=== PATIENT | female | born 1990 | race Caucasian/White ===

== ENCOUNTER 2020-10-14 15:55 | Day surgery (SDC) | payer OTHER ==
--- NOTE | 2020-10-14 16:18 | ED Physician Documentation ---
PD HPI ABD PAIN - Stated complaint Stated Complaint: ABD PX/7 WKS - Chief complaint Chief Complaint: Abd Pain - History obtained from History obtained from: Patient - Additional information Additional information: with history of 2 C-sections at 7 weeks gestation. She had a slip and fall hitting her left side a few days ago. Subsequently developed left pelvic and central cramping without bleeding or discharge. Blood type B positive per her. 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 - Present Medications Home Medications: Ambulatory Orders Medication Instructions Recorded Confirmed Levetiracetam [Keppra] 2,750 mg PO BID 10/14/20 10/14/20 Venlafaxine [Effexor] 37.5 mg PO DAILY 10/14/20 10/14/20 - Allergies Allergies/Adverse Reactions: Allergies Allergy/AdvReac Type Severity Reaction Status Date / Time lamotrigine [From Lamictal] Allergy Anaphylaxis Verified 10/14/20 16:07 - Social History Does the pt smoke?: No Smoking Status: Never smoker Does the pt drink ETOH?: No Does the pt have substance abuse?: No PD ED PE NORMAL - Vitals Vital signs reviewed: Yes - General General: Alert and oriented X 3, No acute distress - HEENT HEENT: PERRL, EOMI - Neck Neck: Supple, no meningeal sign, No bony TTP - Cardiac Cardiac: RRR, No murmur - Respiratory Respiratory: No respiratory distress, Clear bilaterally - Abdomen Abdomen: Normal bowel sounds, Soft, Non tender, Other (I am unable to visualize intrauterine on bedside ultrasound) - Back Back: No CVA TTP, No spinal TTP - Derm Derm: Normal color, Warm and dry - Extremities Extremities: No edema, No calf tenderness / cord - Neuro Neuro: Alert and oriented X 3, Normal speech - Psych Psych: Normal mood, Normal affect Results - Vitals Vitals: Vital Signs - 24 hr 10/14/20 10/14/20 10/14/20 16:01 18:43 20:00 Temperature 37.1 C 36.6 C 36.7 C Heart Rate 102 H 89 86 Respiratory 16 16 16 Rate Blood Pressure 120/79 128/88 H 122/74 O2 Saturation 100 100 100 Oxygen O2 Source Room air - Labs Labs: Laboratory Tests 10/14/20 10/14/20 10/14/20 16:25 16:25 16:25 WBC 8.1 RBC 3.91 L Hgb 11.9 L Hct 35.5 L MCV 90.8 MCH 30.4 MCHC 33.5 RDW 12.3 Plt Count 246 MPV 8.7 Neut # (Auto) 5.6 Lymph # (Auto) 1.8 Dent # (Auto) 0.5 Eos # (Auto) 0.2 Baso # (Auto) 0.0 Absolute Nucleated RBC 0.00 Nucleated RBC % 0.0 Sodium 135 Potassium 3.7 Chloride 101 Carbon Dioxide 24 Anion Gap 10.0 BUN 11 Creatinine 0.7 Estimated GFR (MDRD) 98 Glucose 89 Calcium 8.5 HCG, Quant Nasal Adenovirus (PCR) Nasal B. parapertussis DNA (PCR) Nasal Coronavir 229E PCR Nasal Coronavir HKU1 PCR Nasal Coronavir NL63 PCR Nasal Coronavir OC43 PCR Nasal Enterovir/Rhinovir PCR Nasal Influenza B PCR Nasal Influenza A PCR Nasal Parainfluen 1 PCR Nasal Parainfluen 2 PCR Nasal Parainfluen 3 PCR Nasal Parainfluen 4 PCR Nasal RSV (PCR) Nasal B.pertussis DNA PCR Nasal C.pneumoniae (PCR) Germain Human Metapneumo PCR Nasal M.pneumoniae (PCR) Nasal SARS-CoV-2 (PCR) Blood Type B POSITIVE Antibody Screen NEGATIVE 10/14/20 10/14/20 16:25 18:52 WBC RBC Hgb Hct MCV MCH MCHC RDW Plt Count MPV Neut # (Auto) Lymph # (Auto) [place] # (Auto) Eos # (Auto) Baso # (Auto) Absolute Nucleated RBC Nucleated RBC % Sodium Potassium Chloride Carbon Dioxide Anion Gap BUN Creatinine Estimated GFR (MDRD) Glucose Calcium HCG, Quant 2224.00 Nasal Adenovirus (PCR) NOT DETECTED Nasal B. parapertussis DNA (PCR) NOT DETECTED Nasal Coronavir 229E PCR NOT DETECTED Nasal Coronavir HKU1 PCR NOT DETECTED Nasal Coronavir NL63 PCR NOT DETECTED Nasal Coronavir OC43 PCR NOT DETECTED Nasal Enterovir/Rhinovir PCR NOT DETECTED Nasal Influenza B PCR NOT DETECTED Nasal Influenza A PCR NOT DETECTED Nasal Parainfluen 1 PCR NOT DETECTED Nasal Parainfluen 2 PCR NOT DETECTED Nasal Parainfluen 3 PCR NOT DETECTED Nasal Parainfluen 4 PCR NOT DETECTED Nasal RSV (PCR) NOT DETECTED Nasal B.pertussis DNA PCR NOT DETECTED Nasal C.pneumoniae (PCR) NOT DETECTED Germain Human Metapneumo PCR NOT DETECTED Nasal M.pneumoniae (PCR) NOT DETECTED Nasal SARS-CoV-2 (PCR) NOT DETECTED Blood Type Antibody Screen PD MEDICAL DECISION MAKING - ED course ED course: 30-year-old woman with presents with left pelvic pain and cramping in . Work-up demonstrates findings consistent with a ruptured ectopic with hemoperitoneum and a left adnexal mass measuring up to 2.3 cm. Findings were discussed with the on-call plc technician, Dr. Diaz at 7 PM and he will be in to see the patient and likely take her to the OR. Departure - Departure Disposition: ED Transfer to [facility] Clinical Impression: Ectopic without intrauterine Qualifiers: Location of ectopic : ovarian Laterality: left Qualified Code(s): O00.202 - Left ovarian without intrauterine Condition: Stable Discharge Date/Time: 10/14/20 20:36
[2020-10-14 16:31] LABS: BASOPHILS % (AUTO) 0.2 %; EOSINOPHILS # (AUTO) 0.2 10^3/uL (0.0-0.7); EOSINOPHILS % (AUTO) 2.2 %; HCT - HEMATOCRIT 35.5 % (37.0-47.0); HGB - HEMOGLOBIN 11.9 g/dL (12.0-16.0); LYMPHOCYTES # (AUTO) 1.8 10^3/uL (1.5-3.5); LYMPHOCYTES % (AUTO) 21.7 %; MEAN CORPUSCULAR HEMOGLOBIN 30.4 pg (27.0-31.0); MEAN CORPUSCULAR HGB CONC 33.5 g/dL (32.0-36.0); MEAN CORPUSCULAR VOLUME 90.8 fL (81.0-99.0); MEAN PLATELET VOLUME 8.7 fL (7.9-10.8); MONOCYTES # (AUTO) 0.5 10^3/uL (0.0-1.0); MONOCYTES % (AUTO) 6.2 %; NEUTROPHILS # (AUTO) 5.6 10^3/uL (1.5-6.6); NEUTROPHILS % (AUTO) 69.3 %; PLT - PLATELET COUNT 246 10^3/uL (130-450); RED BLOOD COUNT 3.91 10^6/uL (4.20-5.40); RED CELL DISTRIBUTION WIDTH 12.3 % (12.0-15.0); WHITE BLOOD COUNT 8.1 x10^3/uL (4.8-10.8)
[2020-10-14 16:40] LABS: CALCIUM 8.5 mg/dL (8.5-10.3); CREATININE 0.7 mg/dL (0.4-1.0); POTASSIUM 3.7 mmol/L (3.5-5.0)
--- NOTE | 2020-10-14 18:53 | Ultrasound Report ---
PROCEDURE: OB First Trimester INDICATIONS: pelvic pain, 7w OUTSIDE/PRIOR DATING DATA: Last menstrual period (LMP): 08/29/2020. LMP-based estimated date of delivery (ANNETTA): 06/05/2021. First dating scan (date and location): Not applicable. Estimated date of delivery (ANNETTA) from first dating scan: Not applicable. TECHNIQUE: Real-time scanning was performed of the fetus and maternal pelvic organs, with image documentation. COMPARISON: None available FINDINGS: Embryo: No findings of an intrauterine gestation can be seen. Measurement variability in dating: +/- 4 weeks by LMP, +/- 7 days by mean sac diameter (use before 6 weeks gestation if crown-rump length not able to be measured), +/- 5 days by crown-rump length (6-12 weeks gestation). Maternal organs: The right ovary is unremarkable. The left ovary demonstrates an apparent corpus lute um. Within the left adnexal region, there is a masslike heterogeneous focus that measures 2.3 x 1.9 x 2 c m. A large amount of free fluid can be seen within the adnexal regions on both sides, left worse than right, with echogenic debris. IMPRESSION: Findings highly suspicious for an ectopic , without findings of an intrauterine . T here is apparent hemoperitoneum. There is a masslike heterogeneous focus seen within the left adnexal region that measures up to 2.3 cm. An urgent gynecologic consultation is recommended. Note: Concordant preliminary findings given by the deburring machine operator upon the completion of the examination to Dr. Jackson. Reviewed by: Konrad Nolasco MD on 10/14/2020 5:52 PM BROOKE Approved by: Konrad Nolasco MD on 10/14/2020 5:52 PM BROOKE Station ID: [id number]
--- NOTE | 2020-10-14 19:03 | Ultrasound Report ---
PROCEDURE: OB Transvaginal INDICATIONS: pelvic pain, 7w OUTSIDE/PRIOR DATING DATA: Last menstrual period (LMP): 08/29/2020. LMP-b ased estimated date of delivery (ANNETTA): 06/05/2021. First dating scan (date and location): Not applica ble. Estimated date of delivery (ANNETTA) from first dating scan: Not applicable. TECHNIQUE: Real-time s heber was performed of the fetus and maternal pelvic organs, with image documentation. COMPARISON: None available FINDINGS: Embryo: No findings of an intrauterine gestation can be seen. Measuremen t variability in dating: +/- 4 weeks by LMP, +/- 7 days by mean sac diameter (use before 6 weeks gest ation if crown-rump length not able to be measured), +/- 5 days by crown-rump length (6-12 weeks gest ation). Maternal organs: The right ovary is unremarkable. The left ovary demonstrates an apparent co rpus luteum. Within the left adnexal region, there is a masslike heterogeneous focus that measures 2 .3 x 1.9 x 2 cm. A large amount of free fluid can be seen within the adnexal regions on both sides, l eft worse than right, with echogenic debris. IMPRESSION: Findings highly suspicious for an ectopi c , without findings of an intrauterine . There is apparent hemoperitoneum. There i s a masslike heterogeneous focus seen within the left adnexal region that measures up to 2.3 cm. An urgent gynecologic consultation is recommended. Reviewed by: Konrad Nolasco MD on 10/14/2020 6:01 PM BROOKE Approved by: Konrad Nolasco MD on 10/14/2020 6:01 PM BROOKE Station ID: [id number]
[2020-10-14 19:58] LABS: B. PARAPERTUSSIS- RESP PCR PAN NOT DETECTED; B. PERTUSSIS- RESP PCR PANEL NOT DETECTED; C. PNEUMONIAE- RESP PCR PANEL NOT DETECTED; CORONAVIRUS 229E-RESP PCR NOT DETECTED; CORONAVIRUS HKU1-RESP PCR NOT DETECTED; CORONAVIRUS NL63-RESP PCR NOT DETECTED; CORONAVIRUS OC43-RESP PCR NOT DETECTED; HUMAN METAPNEUMOVIRUS NOT DETECTED; INFLUENZA A- RESP PCR PANEL NOT DETECTED; INFLUENZA B - RESP PCR PANEL NOT DETECTED; M. PNEUMONIAE- RESP PCR PANEL NOT DETECTED; PARAINFLUENZA VIRUS 1 NOT DETECTED; PARAINFLUENZA VIRUS 2 NOT DETECTED; PARAINFLUENZA VIRUS 3 NOT DETECTED; PARAINFLUENZA VIRUS 4 NOT DETECTED; RHINOVIRUS/ENTEROVIRUS NOT DETECTED; RSV- RESP PCR PANEL NOT DETECTED; SARS-CoV-2 -RESP PCR PANEL NOT DETECTED
--- NOTE | 2020-10-14 20:10 | PREOP HISTORY & PHYSICAL ---
DATE OF SERVICE: 10/14/2020 Physician: Rakan Diaz MD IDENTIFICATION: A 30-year-old G4, P2, AB1 female whose LMP was 08/29/2020. This makes her roughly 8 weeks EGA. CHIEF COMPLAINT: Pelvic pain. HISTORY OF PRESENT ILLNESS: The patient states roughly 2 days ago, she developed left-sided pelvic p ain. It has become progressively worse over time in a cos nature. She states the pain is currently a 7/10. She states it is worse with moving, as well as deep breathing. She denies left shoulder rajinder n. She states her bowels are loose. She states nothing makes it feel better. She denies any histor y of PID, IUD or chlamydia. She does have a history of having 2 previous sections. PAST MEDICAL HISTORY: Positive for anxiety, as well as epilepsy. Last seizure was in 03/2020. PAST SURGICAL HISTORY: section x2. ALLERGIES: LAMICTAL, WHICH MAKES HER THROAT SWELL. CURRENT MEDICATIONS: Keppra 2750 b.i.d., Effexor 112 mg daily. HABITS: Patient denies use of tobacco. Drinks alcohol only occasionally. SOCIAL HISTORY: Patient is , works at home. 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 REVIEW OF SYSTEMS: Negative at this time. PHYSICAL EXAMINATION VITAL SIGNS: Her blood pressure is 128/88, pulse is 89, respirations 16, temperature is 36.6. HEENT: Pupils equal, round. Extraocular muscles are intact. Thyroid is not palpably enlarged. HEART: Regular rate and rhythm without murmurs. LUNGS: Lung rand are clear without rales or wheezes. BACK: No spinal or CVA tenderness noted. ABDOMEN: Shows evidence of good bowel sounds; however, there is tenderness in the pelvic area. This is particularly worse on the left hand side. There is some rebound noted at that particular time. Internal examination shows left-sided pelvic tenderness. The right side is only minimally tender at this point. LABORATORIES: Beta hCG is 2224, hemoglobin is 11.9, hematocrit is 35.3, platelets are 246, white cou nt is 8.1. She has an ultrasound, which shows evidence of a left adnexal mass, as well as a large am ount of fluid in the belly. IMPRESSION: Left-sided ectopic with bleeding and hemoperitoneum. PLAN: We will perform laparoscopy with probable removal of left ectopic , which includes th e tube. We will also evacuated the blood clot from the pelvis. Risks and benefits have been explain ed to the patient including those, but not limited to bleeding, infection, injury to pelvic organs, w hich include the uterus, tubes, ovaries, bowel, bladder, and ureter. She is aware of the potential f or DVT with PE, as well as postoperative adhesions, which could cause pain, bowel obstruction and inf ertility. The alternatives of observation are not considered advisable in that she has already had a significant amount of blood and that further waiting will only probably cause more hemoperitoneum. TD: 10/14/2020 20:09
[2020-10-14] MEDS ORDERED: ROCURONIUM 50 MG/5 ML VIAL ONE (20:13)
[2020-10-14] MEDS ORDERED: KETOROLAC 30 MG/ML VIAL ONE (20:13)
[2020-10-14] MEDS ORDERED: fentaNYL 100 MCG/2 ML VIAL ONE (20:13)
[2020-10-14] MEDS ORDERED: ONDANSETRON 4 MG/2 ML VIAL ONE (20:13)
[2020-10-14] MEDS ORDERED: DEXAMETHASONE 4 MG/ML VIAL ONE (20:13)
[2020-10-14] MEDS ORDERED: MIDAZOLAM 2 MG/2 ML VIAL ONE (20:13)
[2020-10-14] MEDS ORDERED: PROPOFOL 200 MG/20 ML VIAL IVP ONE (20:14)
[2020-10-14] MEDS ORDERED: LIDOCAINE-MPF 2% 5 ML VIAL ONE (20:14)
[2020-10-14] MEDS ORDERED: BUPIVACAINE 0.5%-EPI 1:200000 PF 30 ML VIAL ONE (20:17)
[2020-10-14] MEDS ORDERED: ePHEDrine 50 MG/ML VIAL IVP PRN (20:21)
[2020-10-14] MEDS ORDERED: MORPHINE 2 MG/ML CARPUJECT IVP PRN (20:21)
[2020-10-14] MEDS ORDERED: NALOXONE 0.4 MG/ML VIAL IVP PRN (20:21)
[2020-10-14] MEDS ORDERED: METOCLOPRAMIDE 10 MG/2 ML VIAL IVP PRN (20:21)
[2020-10-14] MEDS ORDERED: HYDROmorphone 0.5 MG/0.5 ML SYRINGE IVP PRN ×2 (20:21→22:27)
[2020-10-14] MEDS ORDERED: ONDANSETRON 4 MG/2 ML VIAL IVP PRN ×2 (20:21→22:27)
[2020-10-14] MEDS ORDERED: ATROPINE ABBOJECT 1 MG/10 ML SYRINGE IVP PRN (20:21)
[2020-10-14] MEDS ORDERED: fentaNYL 100 MCG/2 ML VIAL IVP PRN (20:21)
--- NOTE | 2020-10-14 20:21 | ANESTHESIA ---
Pre-Anesthesia VS, & Labs - Diagnosis abdominal pain - Procedure diagnostic laparoscopy Vital Signs: Temp Pulse Resp BP Pulse Ox 36.6 C 89 16 128/88 H 100 10/14/20 18:43 10/14/20 18:43 10/14/20 18:43 10/14/20 18:43 10/14/20 18:43 Height: 5 ft 8 in Weight (kg): 73.936 kg Body Mass Index: 24.7 BMI Classification: Healthy weight - NPO >8 hours - Is Patient ?: No - Lab Results Current Lab Results: Laboratory Tests 10/14/20 16:25: HCG, Quant 2224.00 10/14/20 16:25: Sodium 135, Potassium 3.7, Chloride 101, Carbon Dioxide 24, Anion Gap 10.0, BUN 11, Creatinine 0.7, Estimated GFR (MDRD) 98, Glucose 89, Calcium 8.5 10/14/20 16:25: WBC 8.1, RBC 3.91 L, Hgb 11.9 L, Hct 35.5 L, MCV 90.8, MCH 30.4, MCHC 33.5, RDW 12.3, Plt Count 246, MPV 8.7, Neut # (Auto) 5.6, Lymph # (Auto) 1.8, [place] # (Auto) 0.5, Eos # (Auto) 0.2, Baso # (Auto) 0.0, Absolute Nucleated RBC 0.00, Nucleated RBC % 0.0 10/14/20 16:25: Blood Type B POSITIVE, Antibody Screen NEGATIVE Lab results reviewed: Yes Fish Bones: 10/14/20 16:25 10/14/20 16:25 Home Medications and Allergies Home Medications: Ambulatory Orders Levetiracetam [Keppra] 2,750 mg PO BID 10/14/20 Venlafaxine [Effexor] 37.5 mg PO DAILY 10/14/20 Levetiracetam [Keppra] 2,750 mg PO BID 10/14/20 Venlafaxine [Effexor] 37.5 mg PO DAILY 10/14/20 Allergies/Adverse Reactions: Allergies Allergy/AdvReac Type Severity Reaction Status Date / Time lamotrigine [From Lamictal] Allergy Anaphylaxis Verified 10/14/20 16:07 Anes History & Medical History - Anesthetic History Anesthesia Complications: reports: No previous complications Family history of Anesthesia Complications: Denies Family history of Malignant Hyperthermia: Denies - Medical History Cardiovascular: reports: None Pulmonary: reports: None Gastrointestinal: reports: None Urinary: reports: None Neuro: reports: Seizure disorder Musculoskeletal: reports: None Endocrine/Autoimmune: reports: None Blood Disorders: reports: None Skin: reports: None Smoking Status: Never smoker Psychosocial: reports: No issues indicated - Surgical History Gynecologic: reports: section Exam General: Alert, Oriented x3, Cooperative, No acute distress Dental: WNL Mouth Openin Fingerbreadth Neck Mobility: Normal Mallampati classification: I Plan Anesthesia Type: General Consent for Procedure(s) Verified and Reviewed: Yes Code Status: Attempt Resuscitation ASA classification: 2-Mild systemic disease Is this case an emergency?: No
[2020-10-14] MEDS ORDERED: LACTATED RINGERS 1,000 ML IV SCH (21:00)
[2020-10-14] MEDS ORDERED: HYDROmorphone 1 MG/ML CARPUJECT ONE (21:15)
[2020-10-14] MEDS ORDERED: BUPIVACAINE 0.5%-EPI 1:200000 PF 30 ML VIAL SUBQ ONE ×2 (21:16)
[2020-10-14] MEDS ORDERED: SUGAMMADEX 200 MG/2 ML VIAL IVP ONE (21:44)
--- NOTE | 2020-10-14 22:26 | ANESTHESIA POST OP EVALUATION ---
Anesthesia Post Eval - Post Anesthesia Eval Vitals: Last Vital Signs Temp 36.7 C 10/14/20 20:00 Pulse 86 10/14/20 20:00 Resp 16 10/14/20 20:00 BP 122/74 10/14/20 20:00 Pulse Ox 100 10/14/20 20:00 CV Function Including HR & BP: Stable Pain Control: Satisfactory Nausea & Vomiting: Negative Mental Status: Baseline Respiratory Status: Airway Patent Hydration Status: Satisfactory Anesthesia Complications: None
[2020-10-14] MEDS ORDERED: LORazepam 2 MG/ML VIAL IVP PRN (22:27)
--- NOTE | 2020-10-14 22:36 | OPERATIVE REPORT ---
Operative Report - General Procedure Date: 10/14/20 Planned Procedure: Laproscopic left salpingectomy Pre-Op Diagnosis: Left ectopic with Hemoperitoneum Procedure Performed: Laproscopic left SO Post Op Diagnosis: Left ovarian ectopic , Hemopertomeum - Procedure Note Primary Surgeon: Rakan Diaz MD Anesthesia Provider: Christian Adams CRNA Anesthesia Technique: General ET tube Pathology: Left tube and ovary IV Fluids (mL): 1,600 Estimated Blood Loss (mL): 5
[2020-10-14] MEDS ORDERED: levETIRAcetam 100 MG/ML 473ML BOTTLE PO SCH ×2 (23:00→23:45)
[2020-10-14] MEDS: levETIRAcetam 250 MG TABLET PO SCH (23:43)
[2020-10-14] MEDS: oxyCODONE 5 MG TABLET PO PRN (23:43)
[2020-10-15] MEDS ORDERED: LACTATED RINGERS 1,000 ML IV ONE (02:08)
[2020-10-15] MEDS ORDERED: KETOROLAC 30 MG/ML VIAL ONE (02:24)
[2020-10-15] MEDS ORDERED: KETOROLAC 30 MG/ML VIAL IVP PRN (04:00)
--- NOTE | 2020-10-15 04:38 | OPERATIVE REPORT ---
DATE OF SERVICE: 10/14/2020 Physician: Rakan Diaz MD PREOPERATIVE DIAGNOSIS: Left ectopic with hemoperitoneum. POSTOPERATIVE DIAGNOSES: Left ovarian ectopic with hemoperitoneum. PROCEDURE: Diagnostic laparoscopy with left salpingo-oophorectomy and irrigation of peritoneal cavity. SURGEON: Rakan Diaz MD ANESTHESIA: PARTH Marcus. ANESTHETIC: General via endotracheal tube. ESTIMATED BLOOD LOSS: 5 mL INTRAVENOUS FLUIDS: 1600 mL FINDINGS: Upon entering the abdominal cavity, there was a large amount of blood and clot noted throughout the entire abdominal cavity. This was irrigated away and removed. There was evidence of what appeared to be an adherent left ovarian ectopic . The gallbladder appeared to be free of disease. The right tube and ovary also appeared to be free of disease. PROCEDURE: Following adequate endotracheal anesthesia, patient was placed in the dorsal lithotomy position in [facility]. At this point, a pelvic examination was performed. There was evidence of fullness in the left adnexal area. She was then prepped and draped in the usual fashion. A timeout was performed, at which time concerns were addressed. A speculum was then placed in the vagina. The cervix was visualized, grasped with a single-tooth tenaculum. Utilizing dilators, was dilated up to size 8 mm. A Humi uterine manipulator was then placed, insufflated, and the insulation machine operator's gloves were then changed. A stab wound was made in the subumbilical area following local anesthesia with 0.5% Marcaine with epinephrine. A 5 mm trocar and sheath were placed utilizing a laparoscope. There was no evidence of any injury at the time of insertion. There was evidence of a large amount of blood in the belly at this time. Two additional ports were placed, both in the left and right lower quadrants. These were done following local anesthesia and a skin incision with a #11 blade. The peritoneum was visualized and the pelvis was irrigated clear of blood and clot. The right tube and ovary appeared to be free of disease or adherence. The left ovary appeared to have adherent clot and what appeared to be ectopic tissue on it. This also appeared to involve the left fimbriated end. For this reason, the left adnexa was removed utilizing a LigaSure. Hemostasis was assured. At this point, the pelvis was inspected and there was no evidence of any further bleeding. The gallbladder was also inspected and noted to be free of any disease. The left ectopic was removed with an EndoCatch through the left lower quadrant incision following extending it and placing an 11 mm port. At this point, the left lower quadrant port was closed utilizing a Bishnu- Cyn with 0 Vicryl. The CO2 was allowed to escape from the abdominal cavity and the other two trocars were removed. The skin incision was then closed utilizing 4-0 Monocryl in a subcuticular stitch. These were all dressed with Dermabond. At this point, the speculum was replaced in the vagina. The cervix was visualized, grasped with a single-tooth tenaculum and then 5 mL of 0.5% Marcaine was injected in both uterosacral ligaments. The Humi manipulator was removed. The patient was taken to recovery in stable condition. Sponge and needle counts were correct. TD: 10/15/2020 04:37 OFELIA
--- NOTE | 2020-10-15 08:32 | PROVIDER PROGRESS NOTE ---
Subjective - General Procedure Date: 10/14/20 Post Op Days: 1 Procedure Performed: LAPROSCOPIC LSO - Review of Systems Wound/Incisions: positive: Dressing dry and intact General: positive: No symptoms (PAIN 0/10 WHEN STILL, 6/10 WITH MOVEMENT) Pulmonary: positive: No symptoms Cardiovascular: positive: No symptoms Gastrointestinal: positive: Flatus Objective - Patient Data Reviewed Vital Signs: Yes Vital Signs: Vital Signs x48h Temp Pulse Resp BP Pulse Ox 10/15/20 04:45 36.9 C 101 H 16 108/56 L 97 10/15/20 03:45 37 C 87 14 105/56 L 96 10/15/20 01:45 36.9 C 98 18 115/63 97 10/15/20 00:45 37.1 C 106 H 16 115/57 L 98 Weight: Weight 10/13/20 10/14/20 10/15/20 23:59 23:59 23:59 Weight (kg) 73.936 kg - Lab Results Lab Results: 10/14/20 16:25 10/14/20 16:25 Other Lab Results: Lab Results x24hrs 10/14/20 10/14/20 10/14/20 Range/Units 18:52 16:25 16:25 WBC (4.8-10.8) x10^3/uL RBC (4.20-5.40) 10^6/uL Hgb (12.0-16.0) g/dL Hct (37.0-47.0) % MCV (81.0-99.0) fL MCH (27.0-31.0) pg MCHC (32.0-36.0) g/dL RDW (12.0-15.0) % Plt Count (130-450) 10^3/uL MPV (7.9-10.8) fL Neut # (Auto) (1.5-6.6) 10^3/uL Lymph # (Auto) (1.5-3.5) 10^3/uL [place] # (Auto) (0.0-1.0) 10^3/uL Eos # (Auto) (0.0-0.7) 10^3/uL Baso # (Auto) (0.0-0.1) 10^3/uL Absolute Nucleated RBC x10^3/uL Nucleated RBC % /100WBC Sodium 135 (135-145) mmol/L Potassium 3.7 (3.5-5.0) mmol/L Chloride 101 (101-111) mmol/L Carbon Dioxide 24 (21-32) mmol/L Anion Gap 10.0 (6-13) BUN 11 (6-20) mg/dL Creatinine 0.7 (0.4-1.0) mg/dL Estimated GFR (MDRD) 98 (>89) Glucose 89 (70-100) mg/dL Calcium 8.5 (8.5-10.3) mg/dL HCG, Quant 2224.00 mIU/mL Nasal Adenovirus (PCR) NOT DETECTED Nasal B. parapertussis DNA (PCR) NOT DETECTED Nasal Coronavir 229E PCR NOT DETECTED Nasal Coronavir HKU1 PCR NOT DETECTED Nasal Coronavir NL63 PCR NOT DETECTED Nasal Coronavir OC43 PCR NOT DETECTED Nasal Enterovir/Rhinovir PCR NOT DETECTED Nasal Influenza B PCR NOT DETECTED Nasal Influenza A PCR NOT DETECTED Nasal Parainfluen 1 PCR NOT DETECTED Nasal Parainfluen 2 PCR NOT DETECTED Nasal Parainfluen 3 PCR NOT DETECTED Nasal Parainfluen 4 PCR NOT DETECTED Nasal RSV (PCR) NOT DETECTED Nasal B.pertussis DNA PCR NOT DETECTED Nasal C.pneumoniae (PCR) NOT DETECTED Germain Human Metapneumo PCR NOT DETECTED Nasal M.pneumoniae (PCR) NOT DETECTED Nasal SARS-CoV-2 (PCR) NOT DETECTED Blood Type Antibody Screen 10/14/20 10/14/20 Range/Units 16:25 16:25 WBC 8.1 (4.8-10.8) x10^3/uL RBC 3.91 L (4.20-5.40) 10^6/uL Hgb 11.9 L (12.0-16.0) g/dL Hct 35.5 L (37.0-47.0) % MCV 90.8 (81.0-99.0) fL MCH 30.4 (27.0-31.0) pg MCHC 33.5 (32.0-36.0) g/dL RDW 12.3 (12.0-15.0) % Plt Count 246 (130-450) 10^3/uL MPV 8.7 (7.9-10.8) fL Neut # (Auto) 5.6 (1.5-6.6) 10^3/uL Lymph # (Auto) 1.8 (1.5-3.5) 10^3/uL [place] # (Auto) 0.5 (0.0-1.0) 10^3/uL Eos # (Auto) 0.2 (0.0-0.7) 10^3/uL Baso # (Auto) 0.0 (0.0-0.1) 10^3/uL Absolute Nucleated RBC 0.00 x10^3/uL Nucleated RBC % 0.0 /100WBC Sodium (135-145) mmol/L Potassium (3.5-5.0) mmol/L Chloride (101-111) mmol/L Carbon Dioxide (21-32) mmol/L Anion Gap (6-13) BUN (6-20) mg/dL Creatinine (0.4-1.0) mg/dL Estimated GFR (MDRD) (>89) Glucose (70-100) mg/dL Calcium (8.5-10.3) mg/dL HCG, Quant mIU/mL Nasal Adenovirus (PCR) Nasal B. parapertussis DNA (PCR) Nasal Coronavir 229E PCR Nasal Coronavir HKU1 PCR Nasal Coronavir NL63 PCR Nasal Coronavir OC43 PCR Nasal Enterovir/Rhinovir PCR Nasal Influenza B PCR Nasal Influenza A PCR Nasal Parainfluen 1 PCR Nasal Parainfluen 2 PCR Nasal Parainfluen 3 PCR Nasal Parainfluen 4 PCR Nasal RSV (PCR) Nasal B.pertussis DNA PCR Nasal C.pneumoniae (PCR) Germain Human Metapneumo PCR Nasal M.pneumoniae (PCR) Nasal SARS-CoV-2 (PCR) Blood Type B POSITIVE Antibody Screen NEGATIVE - Current Medications Current Medications: Current Medications Generic Name Dose Route Start Last Admin Trade Name Freq PRN Reason Stop Dose Admin Ketorolac Tromethamine 30 mg 10/15/20 04:00 10/15/20 02:26 Ketorolac 30 Mg/Ml Vial IVP 10/20/20 03:59 30 mg Q6HR PRN Administration PAIN Levetiracetam 2,000 mg 10/14/20 23:30 10/14/20 23:43 Levetiracetam 250 Mg Tablet PO 2,000 mg BID JENNIE Administration Oxycodone HCl 5 mg 10/14/20 22:27 10/14/20 23:43 Oxycodone 5 Mg Tablet PO 5 mg Q4HR PRN Administration PAIN - Physical Exam Wound/Incisions: positive: Healing well, Dressing dry and intact General Appearance: positive: No acute distress, Alert Respiratory: positive: Chest non-tender, No respiratory distress, Breath sounds nml Cardiovascular: positive: Regular rate & rhythm, No murmur, No gallop Abdomen: positive: Non-tender, Nml bowel sounds Back: negative: CVA tenderness (R), CVA tenderness (L) Extremities: negative: Calf tenderness, Monae's sign/cords Neurologic/Psychiatric: positive: Oriented x3 Impression/Plan - Problem List Problem List: pod # 1 KEPT HERE SECONDARY TO PAIN CONTROL SEND HOME RTC 1 WEEK CALL CLINIC FOR APPT DISCHARGE MEDS OXYCODONE 5 MG
--- NOTE | 2020-10-15 08:36 | Discharge Plan ---
Discharge Plan Problem Reviewed?: Yes Disposition: Home, Self Care Condition: Good Diet: Regular Activity Restrictions: PELVIC REST 3 WEEKS Shower Restrictions: No Driving Restrictions: Yes (NOT WHILE TAKING NARCOTICS) Weight Bearing: Full Weight No Smoking: If you smoke, Please STOP! Call for help.
[2020-10-15 08:50] VITALS: BP 114/69
[2020-10-15] MEDS: levETIRAcetam 250 MG TABLET PO SCH (09:24)
[2020-10-15] MEDS: oxyCODONE 5 MG TABLET PO PRN (09:24)
== END 2020-10-15 10:30 | disposition home or self-care (01) ==
LOC: ED 15:55 → SDS 19:48 → MS2 23:21 → SDS 10-15 10:30
PROVIDERS: ATTEND Obstetrics & Gynecology
PROC: 10T24ZZ Resection of Products of Conception, Ectopic, Percutaneous Endoscopic Approach (ICD-10-PCS; principal; 2020-10-14 20:30)
DX: O00.202 Left ovarian pregnancy without intrauterine pregnancy (principal); O08.1 Delayed or excessive hemorrhage following ectopic and molar pregnancy; Z3A.08 8 weeks gestation of pregnancy; G40.909 Epilepsy, unspecified, not intractable, without status epilepticus; F41.9 Anxiety disorder, unspecified; Z20.822 Contact with and (suspected) exposure to COVID-19
CPT/HCPCS: 0202U; 36415; 59151; 76801; 76817; 80048; 84702; 85025; 86850; 86900; 86901; 99284; 99285; A9270; J1170; J7120

== ENCOUNTER 2020-10-21 12:07 | Outpatient (CLI) | payer OTHER | END 2020-10-21 12:08 | disposition home or self-care (01) | LOC: LAB.N 12:07 | PROVIDERS: ATTEND Obstetrics & Gynecology | DX: Z87.59 Personal history of other complications of pregnancy, childbirth and the puerperium (principal) | CPT/HCPCS: 36415; 84702 ==

== ENCOUNTER 2020-10-25 15:19 | Outpatient (CLI) | payer OTHER | END 2020-10-25 15:20 | disposition home or self-care (01) | LOC: LAB 15:19 | PROVIDERS: ATTEND Obstetrics & Gynecology | DX: Z87.59 Personal history of other complications of pregnancy, childbirth and the puerperium (principal) | CPT/HCPCS: 36415; 84702 ==

== ENCOUNTER 2020-11-01 13:43 | Outpatient (CLI) | payer OTHER | END 2020-11-01 13:44 | disposition home or self-care (01) | LOC: LAB.N 13:43 | PROVIDERS: ATTEND Obstetrics & Gynecology | DX: Z87.59 Personal history of other complications of pregnancy, childbirth and the puerperium (principal) | CPT/HCPCS: 36415; 84702 ==

== ENCOUNTER 2021-02-20 11:53 | Emergency (ER) | payer OTHER ==
[2021-02-20] MEDS ORDERED: SODIUM CHLORIDE 0.9% 1,000 ML IV STA (13:59)
[2021-02-20] MEDS ORDERED: KETOROLAC 15 MG/ML VIAL IVP STA (13:59)
[2021-02-20] MEDS ORDERED: METOCLOPRAMIDE 10 MG/2 ML VIAL IVP STA (13:59)
[2021-02-20] MEDS ORDERED: diphenhydrAMINE INJ 50 MG/ML VIAL IVP STA (13:59)
--- NOTE | 2021-02-20 14:01 | ED Physician Documentation ---
History of Present Illness - Stated complaint Stated Complaint: HEAD PX/DIZZY - Chief complaint Chief Complaint: General - History obtained from History obtained from: Patient - Additonal information Additional information: 30-year-old woman with history of seizure disorder, last seizure about a year ago maintained on Keppra with last dose change about 3 or 4 months ago who presents with 2 weeks of headache, it is a right occipital headache radiating around the side to the right eye area. It is associated with nausea and vomiting. She has no history of primary headache syndrome. She has had an MRI of her head in the past but it has been greater than 10 years she says without pertinent positive findings. She was saw her physician who prescribed Imitrex which was without relief. Advised to come to the emergency department for further evaluation and treatment. Headache waxes and wanes. Tends to be worse at night. No associated fevers. No URI symptoms. 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 - Present Medications Home Medications: Ambulatory Orders Medication Instructions Recorded Confirmed Levetiracetam [Keppra] 2,750 mg PO BID 10/14/20 10/14/20 Venlafaxine [Effexor] 37.5 mg PO DAILY 10/14/20 10/14/20 Butalb/Acetaminophen/Caffeine 1 each PO Q4H PRN #20 02/20/21 [Fioricet 50-300-40 mg Capsule] - Allergies Allergies/Adverse Reactions: Allergies Allergy/AdvReac Type Severity Reaction Status Date / Time lamotrigine [From Lamictal] Allergy Anaphylaxis Verified 02/20/21 12:09 - Social History Does the pt smoke?: No Smoking Status: Never smoker Does the pt drink ETOH?: No Does the pt have substance abuse?: No PD ED PE NORMAL - Vitals Vital signs reviewed: Yes - General General: Alert and oriented X 3, Other (Slightly light sensitive but otherwise appears well without distress) - HEENT HEENT: PERRL, EOMI - Neck Neck: Supple, no meningeal sign, No bony TTP - Cardiac Cardiac: RRR, No murmur - Respiratory Respiratory: No respiratory distress, Clear bilaterally - Abdomen Abdomen: Non tender - Neuro Neuro: Alert and oriented X 3, 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, No motor deficit, No sensory deficit, Normal speech, Other (Mild coarse tremor in the upper extremities which she says is new) Eye Opening: Spontaneous Motor: Obeys Commands Verbal: Oriented GCS Score: 15 Results - Vitals Vitals: Vital Signs - 24 hr 02/20/21 02/20/21 02/20/21 12:09 14:12 16:00 Temperature 36.8 C Heart Rate 80 80 70 Respiratory 16 19 16 Rate Blood Pressure 131/72 H 116/80 118/72 O2 Saturation 100 100 99 Oxygen O2 Source Room air - Labs Labs: Laboratory Tests 02/20/21 02/20/21 14:36 14:36 WBC 6.9 RBC 4.91 Hgb 14.5 Hct 44.2 MCV 90.0 MCH 29.5 MCHC 32.8 RDW 12.5 Plt Count 298 MPV 9.0 Neut # (Auto) 4.3 Lymph # (Auto) 2.0 [place] # (Auto) 0.4 Eos # (Auto) 0.2 Baso # (Auto) 0.0 Absolute Nucleated RBC 0.00 Nucleated RBC % 0.0 Sodium 139 Potassium 3.7 Chloride 102 Carbon Dioxide 27 Anion Gap 10.0 BUN 13 Creatinine 0.8 Estimated GFR (MDRD) 84 L Glucose 86 Calcium 9.4 Procedures - General procedure General procedure: She was difficult for IV access, multiple nurses had tried and failed. I p ersonally placed a 22-gauge long IV in the right external jugular vein after ChloraPrep which flushed and antonio well. PD MEDICAL DECISION MAKING - ED course ED course: 30-year-old woman presents with headache which sounds like migraine, but with no history of same, as such CT imaging of the brain was done and negative for any pertinent findings. Care was delayed by difficulty to IV access but once we did get IV access she improved significantly with the administration of Reglan, Benadryl, and Toradol, which gives further credence to the suggestion of a migrainous cause. Departure - Departure Disposition: 01 Home, Self Care Clinical Impression: Migraine Qualifiers: Migraine type: with aura Status migrainosus presence: with status migrainosus Intractability: not intractable Qualified Code(s): G43.101 - Migraine with aura, not intractable, with status migrainosus Condition: Good Record reviewed to determine appropriate education?: Yes Instructions: ED Headache Migraine Prescriptions: Butalb/Acetaminophen/Caffeine [Fioricet 50-300-40 mg Capsule] 1 each PO Q4H PRN #20 PRN Reason: Headache Comments: Call your doctor to arrange a follow-up appointment, make the next available appointment. In the interim, return anytime if worse or if new symptoms develop.
--- NOTE | 2021-02-20 14:38 | CT Report ---
PROCEDURE: HEAD WO INDICATIONS: headache TECHNIQUE: Noncontrast 4.5 mm thick angled axial sections acquired from the foramen magnum to the vertex. For r adiation dose reduction, the following was used: automated exposure control, adjustment of mA and/or kV according to patient size. COMPARISON: None. FINDINGS: Image quality: There is streak artifact seen through the skull base. CSF spaces: Basal cisterns are patent. No extra-axial fluid collections. Ventricles are normal in size and shape. Brain: No midline shift. No intracranial masses or hemorrhage. [place]-white matter interface is norm al. Skull and face: Calvarium and visualized facial bones are intact, without suspicious lesions. Sinuses: Visualized sinuses and mastoids are clear. IMPRESSION: A cause of headache cannot be seen on these images. No intracranial hemorrhage is identified. No masses or mass effect can be seen to the limits of noncontrast head CT. Reviewed by: Konrad Nolasco MD on 02/20/2021 1:37 PM AKDT Approved by: Konrad Nolasco MD on 02/20/2021 1:37 PM AKSHAMAR Station ID: [id number]
[2021-02-20 14:44] LABS: BASOPHILS % (AUTO) 0.3 %; EOSINOPHILS # (AUTO) 0.2 10^3/uL (0.0-0.7); EOSINOPHILS % (AUTO) 2.5 %; HCT - HEMATOCRIT 44.2 % (37.0-47.0); HGB - HEMOGLOBIN 14.5 g/dL (12.0-16.0); MEAN CORPUSCULAR HEMOGLOBIN 29.5 pg (27.0-31.0); MEAN CORPUSCULAR HGB CONC 32.8 g/dL (32.0-36.0); MONOCYTES # (AUTO) 0.4 10^3/uL (0.0-1.0); MONOCYTES % (AUTO) 5.5 %; NEUTROPHILS # (AUTO) 4.3 10^3/uL (1.5-6.6); NEUTROPHILS % (AUTO) 62.6 %; PLT - PLATELET COUNT 298 10^3/uL (130-450); RED BLOOD COUNT 4.91 10^6/uL (4.20-5.40); RED CELL DISTRIBUTION WIDTH 12.5 % (12.0-15.0); WHITE BLOOD COUNT 6.9 x10^3/uL (4.8-10.8)
[2021-02-20 14:55] LABS: CALCIUM 9.4 mg/dL (8.5-10.3); CREATININE 0.8 mg/dL (0.4-1.0); POTASSIUM 3.7 mmol/L (3.5-5.0)
[2021-02-20 16:07] VITALS: BP 118/72
== END 2021-02-20 16:43 | disposition home or self-care (01) ==
LOC: ED 11:53
DX: G43.101 Migraine with aura, not intractable, with status migrainosus (principal); R25.1 Tremor, unspecified; G40.909 Epilepsy, unspecified, not intractable, without status epilepticus
CPT/HCPCS: 36415; 70450; 80048; 80177; 85025; 96361; 96374; 96375; 99284; J1200; J2765

== ENCOUNTER 2021-03-05 17:21 | Outpatient (CLI) | payer OTHER | END 2021-03-05 17:22 | disposition EMS.NT | LOC: EMS 17:21 | DX: R56.9 Unspecified convulsions (principal) ==

== ENCOUNTER 2021-03-06 10:16 | Outpatient (CLI) | payer OTHER ==
--- NOTE | 2021-03-06 12:05 | MRI Report ---
PROCEDURE: Brain W/O INDICATIONS: HEADACHE TECHNIQUE: Noncontrast axial T1 spin echo, axial T2 fast spin echo, sagittal and axial FLAIR, coronal T2 fast sp in echo, axial gradient echo, axial diffusion and ADC through the brain. COMPARISON: None. FINDINGS: Image quality: Excellent. CSF Spaces: Basal cisterns are patent. No extra-axial fluid collections. Ventricles are normal in size and shape. 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 No IV contrast was administered. There is no obvi ous compression upon the tectum by the mass. The aqueduct appears normal in caliber on the provided i mages. There is no imaging evidence of obstructive hydrocephalus. Otherwise normal brain parenchymal signal intensity. No findings of mass effect or midline shift elsewhere. Skull and face: Calvarium has normal marrow signal. Orbits appear normal. Sinuses: Sinuses and mastoids are clear. 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 This is of uncertain clinical signific ance. Pineal region cysts of this size can be asymptomatic but are also a source of headaches. Neuros urgical consultation is recommended for further workup. Reviewed by: Dru Carvalho MD on 03/06/2021 12:04 PM PDT Approved by: Dru Carvalho MD on 03/06/2021 12:04 PM PDT Station ID: [id number]
== END 2021-03-06 10:17 | disposition home or self-care (01) ==
LOC: DI 10:16
PROVIDERS: ATTEND Physician Assistant
DX: G93.0 Cerebral cysts (principal)

== ENCOUNTER 2021-10-10 21:24 | Emergency (ER) | payer OTHER ==
[2021-10-10] MEDS ORDERED: SODIUM CHLORIDE 0.9% 1,000 ML IV STA (22:49)
[2021-10-10] MEDS ORDERED: MORPHINE 2 MG/ML CARPUJECT IVP STA (22:57)
[2021-10-10] MEDS ORDERED: ONDANSETRON 4 MG/2 ML VIAL IVP STA (22:57)
[2021-10-10 23:04] LABS: BASOPHILS % (AUTO) 0.2 %; EOSINOPHILS # (AUTO) 0.3 10^3/uL (0.0-0.7); EOSINOPHILS % (AUTO) 1.9 %; HCT - HEMATOCRIT 38.1 % (37.0-47.0); HGB - HEMOGLOBIN 13.1 g/dL (12.0-16.0); LYMPHOCYTES # (AUTO) 1.5 10^3/uL (1.5-3.5); LYMPHOCYTES % (AUTO) 11.7 %; MEAN CORPUSCULAR HEMOGLOBIN 31.1 pg (27.0-31.0); MEAN CORPUSCULAR HGB CONC 34.4 g/dL (32.0-36.0); MEAN CORPUSCULAR VOLUME 90.5 fL (81.0-99.0); MEAN PLATELET VOLUME 9.5 fL (7.9-10.8); MONOCYTES # (AUTO) 0.7 10^3/uL (0.0-1.0); NEUTROPHILS # (AUTO) 10.5 10^3/uL (1.5-6.6); NEUTROPHILS % (AUTO) 80.9 %; PLT - PLATELET COUNT 277 10^3/uL (130-450); RED BLOOD COUNT 4.21 10^6/uL (4.20-5.40); RED CELL DISTRIBUTION WIDTH 12.4 % (12.0-15.0); WHITE BLOOD COUNT 12.9 x10^3/uL (4.8-10.8)
[2021-10-10 23:17] LABS: ALBUMIN 4.4 g/dL (3.2-5.5); ALBUMIN/GLOBULIN RATIO 1.5 (1.0-2.2); BILIRUBIN,TOTAL 0.8 mg/dL (0.2-1.0); CALCIUM 8.9 mg/dL (8.5-10.3); CREATININE 0.7 mg/dL (0.4-1.0); POTASSIUM 3.6 mmol/L (3.5-5.0); TOTAL PROTEIN 7.3 g/dL (6.7-8.2)
--- NOTE | 2021-10-10 23:23 | CT Report ---
PROCEDURE: HEAD WO INDICATIONS: seizure/longer post ictal TECHNIQUE: Noncontrast 4.5 mm thick angled axial sections acquired from the foramen magnum to the vertex. For r adiation dose reduction, the following was used: automated exposure control, adjustment of mA and/or kV according to patient size. COMPARISON: MRI brain 03/06/2021. Head CT 02/20/2021. FINDINGS: Image quality: Excellent. CSF spaces: Basal cisterns are patent. No extra-axial fluid collections. Ventricles are normal in size and shape. Brain: No midline shift. No intracranial masses or hemorrhage. No area of hypodensity in a vascular distribution to suggest acute infarction. A focus of hypodensity in the region of the right inferior atrial ganglia, (3/10), unchanged. Skull and face: Calvarium and visualized facial bones are intact, without suspicious lesions. Sinuses: Visualized sinuses and mastoids are clear. IMPRESSION: No acute intracranial abnormality. Reviewed by: Héctor Soto MD on 10/10/2021 11:24 PM PDT Approved by: Héctor Soto MD on 10/10/2021 11:24 PM PDT Station ID: [id number]
--- NOTE | 2021-10-11 00:23 | ED Physician Documentation ---
PD HPI SEIZURE - Stated complaint Stated Complaint: HEAD INJ/CONFUSION - Chief complaint Chief Complaint: Neuro - History obtained from History obtained from: Patient, Family (Patient's ) - Additional information Additional information: Patient is a 31-year-old female with a known seizure disorder and history of migraines presenting for evaluation after a seizure episode this evening and head injury.Per her he was getting the kids ready for bed when he heard his fall down and witnessed her having a generalized seizure this evening at 7:30 PM. It lasted approximately 2 to 3 minutes which is longer than other episodes she has had but otherwise appeared similar. She did have a longer postictal period.Did appear to be more confused regarding events prior to the seizure which is not typical for her. She has been compliant with Keppra 1000 mg twice daily and Zonegran 200 twice daily. She sees a neurologist through [facility], Dr. Duque.She has not missed any doses of her medications and has not been late in taking out of her medications. She did take her evening doses. She actually saw her neurologist 2 days ago for a checkup with no recent changes to her medications. Her last seizure was 1 year ago. She in the past has had increased episodes around her. And she is just coming off of her menses.She denies fever, cough, chest pain, difficulty breathing, vomiting, diarrhea. She does report increased stress with her dog unexpectedly passing away today.She did sustain an injury to her head. She does complain of a headache.Patient has been also endorse that she normally gets right leg weakness after a seizure which is lasting longer than normal tonight. 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 - Present Medications Home Medications: Ambulatory Orders Medication Instructions Recorded Confirmed Levetiracetam [Keppra] 2,750 mg PO BID 10/14/20 10/14/20 Venlafaxine [Effexor] 37.5 mg PO DAILY 10/14/20 10/14/20 Butalb/Acetaminophen/Caffeine 1 each PO Q4H PRN #20 02/20/21 [Fioricet 50-300-40 mg Capsule] levETIRAcetam [Keppra] 250 mg PO BID #60 tablet 10/11/21 - Allergies Allergies/Adverse Reactions: Allergies Allergy/AdvReac Type Severity Reaction Status Date / Time lamotrigine [From Lamictal] Allergy Anaphylaxis Verified 10/10/21 21:41 - Social History Does the pt smoke?: No Smoking Status: Never smoker Does the pt drink ETOH?: No Does the pt have substance abuse?: No PD ED PE NORMAL - General General: Alert and oriented X 3, No acute distress, Well developed/nourished - HEENT HEENT: PERRL, EOMI, Moist mucous membranes, Pharynx benign, Other (Right Forehead hematoma) - Neck Neck: Supple, no meningeal sign, No bony TTP, C-Spine cleared by NEXUS criteria - Cardiac Cardiac: RRR, No murmur, Strong equal pulses - Respiratory Respiratory: No respiratory distress, Clear bilaterally - Abdomen Abdomen: Normal bowel sounds, Soft, Non tender - Derm Derm: Normal color, No rash - Extremities Extremities: No deformity, No edema - Neuro Neuro: Alert and oriented X 3, 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 No: No motor deficit (Mild weakness to right leg on straight leg raise compared to left,) Eye Opening: Spontaneous Motor: Obeys Commands Verbal: Oriented GCS Score: 15 - Psych Psych: Normal mood, Normal affect Results - Vitals Vitals: Vital Signs - 24 hr 10/10/21 10/10/21 10/11/21 21:32 23:41 00:35 Temperature 36.4 C L Heart Rate 67 60 60 Respiratory 17 15 15 Rate Blood Pressure 100/59 L 109/81 H 111/75 O2 Saturation 100 100 100 10/11/21 01:23 Temperature 36.5 C Heart Rate 62 Respiratory 15 Rate Blood Pressure 114/72 O2 Saturation 100 Oxygen O2 Source Room air - EKG (time done) 2302 Rate: Rate (enter#) (57) Rhythm: Sinus bradycardia [place]: Normal Ischemia: No: ST elevation c/w ischemia Computer interpretation: Agree with computer - Labs Labs: Laboratory Tests 10/10/21 10/10/21 10/11/21 22:58 22:58 00:25 WBC 12.9 H RBC 4.21 Hgb 13.1 Hct 38.1 MCV 90.5 MCH 31.1 H MCHC 34.4 RDW 12.4 Plt Count 277 MPV 9.5 Neut # (Auto) 10.5 H Lymph # (Auto) 1.5 [place] # (Auto) 0.7 Eos # (Auto) 0.3 Baso # (Auto) 0.0 Absolute Nucleated RBC 0.00 Nucleated RBC % 0.0 Sodium 139 Potassium 3.6 Chloride 110 Carbon Dioxide 22 Anion Gap 7.0 BUN 15 Creatinine 0.7 Estimated GFR (MDRD) 98 Glucose 127 H Calcium 8.9 Total Bilirubin 0.8 AST 20 ALT 16 Alkaline Phosphatase 57 Total Protein 7.3 Albumin 4.4 Globulin 2.9 Albumin/Globulin Ratio 1.5 Urine Color YELLOW Urine Clarity SL. CLOUDY Urine pH 7.0 Ur Specific [place] 1.025 Urine Protein NEGATIVE Urine Glucose (UA) NEGATIVE Urine Ketones NEGATIVE Urine Occult Blood LARGE H Urine Nitrite NEGATIVE Urine Bilirubin NEGATIVE Urine Urobilinogen 0.2 (NORMAL) Ur Leukocyte Esterase NEGATIVE Urine RBC 0-5 Urine WBC 0-3 Ur Squamous Epith Cells FEW Squamous Amorphous Sediment Moderate Urine Bacteria Rare Ur Microscopic Review INDICATED Urine Culture Comments NOT INDICATED Urine HCG, Qual NEGATIVE PD MEDICAL DECISION MAKING - ED course Complexity details: reviewed results, re-evaluated patient, d/w patient, d/w family, d/w [employer] bi consultant ED course: Patient with a seizure disorder presenting for evaluation after a seizure and head injury. She does have contusion to the forehead and did have a longer seizure than previous episodes therefore a head CT was obtained. NoAcute intracranial pathology on head CT. Patient had no further seizure episodes while in the ED. She was initially noted to have mild weakness to her right leg which did improve while in the ER. Her labs were overall reassuring there is no signs of infection. She is compliant with her medications. I did review her case including the longer leg weakness with on-call neurologist, Dr. Jonathon Hassan who is covering for patient's neurologist Dr. Duque. He thinks that her Postictal symptoms and weakness could be lasting longer as the seizure was longer this evening. He is unsure as to what may have triggered this but recommends giving her an additional 500 mg of p.o. Keppra tonight and increasing her Keppra dose to 1250 mg twice daily. He also requests sending Keppra and Zonegran levels for Dr. Herron to follow-up on. He does not believe she needs to be admitted or have an MRI at this time.I reviewed these recommendations with the patient and her and they are in agreement with the plan. They are comfortable with plan for discharge and aware of the return precautions. Departure - Departure Disposition: 01 Home, Self Care Clinical Impression: Breakthrough seizure Headache Qualifiers: Headache type: unspecified Headache chronicity pattern: acute headache Intractability: not intractable Qualified Code(s): R51.9 - Headache, unspecified Condition: Stable Instructions: ED Seizure Recurrent Follow-Up: VANNESSA DUQUE MD [Physician No Access] - Prescriptions: levETIRAcetam [Keppra] 250 mg PO BID #60 tablet Comments: Ellie acevedo were evaluated after a seizure episode this evening. You had a head CT done which fortunately did not show any abnormalities. You also had lab testing done and we sent off labs to check your Keppra and Zonegran levels which her neurologist will need to follow-up on.I did review your case with Dr. Hassan who is covering for your neurologist and he recommends increasing your Keppra dose to 1250 mg twice a day. I have sent a prescription for 250 mg tablets to the [facility] pharmacy in [place]. Please start taking this incre ased dose tomorrow and reach out to your neurologist. If you have anyThere are episodes or have other concerns such as worsening headache, fever, new pains or weakness please return to the emergency department. Discharge Date/Time: 10/11/21 01:23
[2021-10-11 00:30] LABS: BILIRUBIN,URINE NEGATIVE (NEGATIVE); GLUCOSE, URINE (UA) NEGATIVE (NEGATIVE); KETONES,URINE (UA) NEGATIVE (NEGATIVE); LEUKOCYTE ESTERASE, URINE NEGATIVE (NEGATIVE); NITRITE,URINE NEGATIVE (NEGATIVE); OCCULT BLOOD,URINE LARGE (NEGATIVE); PROTEIN,URINE NEGATIVE (NEGATIVE); UROBILINOGEN,URINE 0.2 (NORMAL) E.U./dL (NORMAL)
[2021-10-11 00:31] LABS: CLARITY,URINE SL. CLOUDY (CLEAR)
[2021-10-11] MEDS ORDERED: levETIRAcetam 250 MG TABLET PO STA (00:36)
[2021-10-11 00:37] LABS: HCG UR QUAL NEGATIVE
[2021-10-11 00:38] LABS: AMORPHOUS SEDIMENT,UR Moderate /LPF; BACTERIA,URINE Rare /HPF (None Seen); RBC,URINE 0-5 /HPF (0-5); SQUAMOUS EPITHELIAL CELL,UR FEW Squamous (<= Few); WBC,URINE 0-3 /HPF (0-5)
[2021-10-11 01:25] VITALS: BP 114/72
== END 2021-10-11 01:23 | disposition home or self-care (01) ==
LOC: ED 21:24
DX: S09.90XA Unspecified injury of head, initial encounter (principal); S00.83XA Contusion of other part of head, initial encounter; R51.9 Headache, unspecified; X58.XXXA Exposure to other specified factors, initial encounter
CPT/HCPCS: 36415; 70450; 80053; 80177; 81001; 81025; 85025; 93005; 96374; 96375; 99283; 99284; A9270; 81003; 87086

== ENCOUNTER 2022-02-25 13:06 | Outpatient (CLI) | payer OTHER | END 2022-02-25 13:07 | disposition home or self-care (01) | LOC: DI 13:06 | PROVIDERS: ATTEND Nurse Practitioner | DX: Z53.9 Procedure and treatment not carried out, unspecified reason (principal) ==

== ENCOUNTER 2022-02-25 13:37 | Outpatient (CLI) | payer OTHER ==
--- NOTE | 2022-02-25 14:17 | XRAY Report ---
PROCEDURE: Knee 2 View LT INDICATIONS: PAIN IN LEFT KNEE TECHNIQUE: 2 views of the left knee(s) were acquired. COMPARISON: None. FINDINGS: Bones: No fractures or dislocations. No suspicious bony lesions. Soft tissues: No joint effusion. No suspicious soft tissue calcifications. IMPRESSION: No visualized acute fracture or dislocation. However, occult injury cannot be excluded. Recommend short interval imaging follow-up in 7-10 days as clinically indicated for additional evalua tion. Reviewed by: Yola Monk MD on 02/25/2022 2:16 PM PDT Approved by: Yola Monk MD on 02/25/2022 2:16 PM PDT Station ID: [id number]
== END 2022-02-25 13:38 | disposition home or self-care (01) ==
LOC: DI 13:37
PROVIDERS: ATTEND Nurse Practitioner
DX: M25.562 Pain in left knee (principal)

== ENCOUNTER 2022-04-09 07:18 | Outpatient (CLI) | payer OTHER ==
--- NOTE | 2022-04-10 10:03 | MRI Report ---
PROCEDURE: KNEE WO - LT INDICATIONS: LEFT KNEE PAIN TECHNIQUE: Noncontrast sagittal PD fast spin echo and T2 fast spin echo with fat saturation, sagittal 3-D gradie nt sequence with fat saturation; coronal T1 spin echo and PD fast spin echo with fat saturation, and axial PD fast spin echo with fat saturation through the knee. COMPARISON: X-ray left knee, 02/25/2022. FINDINGS: Image quality: Excellent. Menisci: There is a linear hyperintense signal in the peripheral aspect of the body of the lateral m eniscus (series 5 image 18), suspicious for a nondisplaced vertical tear. The medial meniscus normal morphology and internal signal. The meniscal root ligaments appear intact. Cruciate ligaments: The anterior and posterior cruciate ligaments appear intact. Medial structures: The medial collateral ligament appears intact. The semimembranosus tendon insert ions and meniscocapsular junction appear intact. Visualized portions of the pes anserinus tendons ap pear normal. No abnormal bursal fluid. Lateral structures: The lateral collateral ligament, long and short heads of the biceps femoris tend on appear intact. The popliteus tendon appears normal. Iliotibial band appears normal. Anterior structures: The quadriceps and patellar tendons appear intact. There is low-grade quadrice ps tendinitis at the patellar insertion. Patellar alignment is normal. No femoral trochlear dysplasi a or ventral trochlear prominence. No edema in the infrapatellar fat pad. Bones and cartilage: No bone marrow contusions or fractures. Mild cartilage relation with preserved cartilage thickness. Joint space: There is small knee joint effusion. No Garcia's cyst. Normal appearing synovial plicae are incidentally noted. IMPRESSION: 1. Suspect a nondisplaced vertical tear involving the body of the lateral meniscus. 2. Low-grade quadriceps tendinitis. 3. Small knee joint effusion. Reviewed by: Luci Tyler MD on 04/10/2022 10:02 AM PDT Approved by: Luci Tyler MD on 04/10/2022 10:02 AM PDT Station ID: [id number]
== END 2022-04-09 07:19 | disposition home or self-care (01) ==
LOC: DI 07:18
PROVIDERS: ATTEND Physician Assistant
DX: M25.562 Pain in left knee (principal); M76.9 Unspecified enthesopathy, lower limb, excluding foot; M25.462 Effusion, left knee

== ENCOUNTER 2022-10-09 12:16 | Outpatient (CLI) | payer OTHER ==
--- NOTE | 2022-10-09 14:03 | XRAY Report ---
PROCEDURE: Knee 3 View LT INDICATIONS: PAIN IN LEFT KNEE TECHNIQUE: 3 views of the left knee(s) were acquired. COMPARISON: None. FINDINGS: Bones: No fractures or dislocations. No suspicious bony lesions. Soft tissues: No knee joint effusion. No suspicious soft tissue calcifications or masses. IMPRESSION: No acute bony abnormality. No significant degenerative change. Reviewed by: Bernard Ryan on 10/09/2022 2:02 PM PDT Approved by: Bernard Ryan on 10/09/2022 2:02 PM PDT Station ID: [id number]
== END 2022-10-09 12:17 | disposition home or self-care (01) ==
LOC: DI 12:16
PROVIDERS: ATTEND Physician Assistant
DX: M25.562 Pain in left knee (principal)

== ENCOUNTER 2023-02-16 10:32 | Outpatient (CLI) | payer OTHER ==
--- NOTE | 2023-02-16 20:03 | XRAY Report ---
PROCEDURE: Clavicle LT INDICATIONS: PAIN IN LEFT SHOULDER TECHNIQUE: 2 views of the clavicle were acquired. COMPARISON: None. FINDINGS: Bones: No fractures or dislocations. No suspicious bony lesions. Soft tissues: No suspicious soft tissue calcifications or masses. The visualized lung demonstrates a normal appearance. IMPRESSION: Normal plain films, without a displaced clavicle fracture seen. Reviewed by: Konrad Nolasco MD on 02/16/2023 7:01 PM BROOKE Approved by: Konrad Nolasco MD on 02/16/2023 7:01 PM BROOKE Station ID: [id number]
== END 2023-02-16 10:33 | disposition home or self-care (01) ==
LOC: DI 10:32
PROVIDERS: ATTEND Specialist
DX: M25.512 Pain in left shoulder (principal)

== ENCOUNTER 2023-12-09 16:00 | Outpatient (CLI) | payer OTHER | END 2023-12-09 23:59 | disposition critical access hospital (66) | LOC: EMS 16:00 | DX: G40.909 Epilepsy, unspecified, not intractable, without status epilepticus (principal) | CPT/HCPCS: A0425; A0429 ==

== ENCOUNTER 2023-12-09 16:25 | Emergency (ER) | payer OTHER ==
--- NOTE | 2023-12-09 16:34 | ED Physician Documentation ---
PD HPI SEIZURE - Stated complaint Stated Complaint: SZ - History obtained from History obtained from: Patient - Additional information Additional information: 33-year-old woman with history of epilepsy currently maintained on Keppra and zonisamide. She has had increasing seizure frequency lately, had about 3 last week and had another 1 today. She was at work today when it happened. It was preceded by getting hit on the right neck by a soccer ball and then developed her usual aura and then a 2-minute tonic-clonic seizure. On arrival for EMS she was no longer postictal and back to normal. Her only complaint is right-sided neck pain. No headache. She says she has been compliant with her antiepileptics. No drug or alcohol use. No possibility of . 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 - Present Medications Home Medications: Ambulatory Orders Medication Instructions Recorded Confirmed Levetiracetam [Keppra] 2,750 mg PO BID 10/14/20 10/14/20 Venlafaxine [Effexor] 37.5 mg PO DAILY 10/14/20 10/14/20 Butalb/Acetaminophen/Caffeine 1 each PO Q4H PRN #20 02/20/21 [Fioricet 50-300-40 mg Capsule] levETIRAcetam [Keppra] 250 mg PO BID #60 tablet 10/11/21 - Allergies Allergies/Adverse Reactions: Allergies Allergy/AdvReac Type Severity Reaction Status Date / Time lamotrigine [From Lamictal] Allergy Anaphylaxis Verified 12/09/23 16:35 - Social History Does the pt smoke?: No Smoking Status: Never smoker Does the pt drink ETOH?: No Does the pt have substance abuse?: No PD ED PE NORMAL - Vitals Vital signs reviewed: Yes - General General: Alert and oriented X 3, No acute distress - HEENT HEENT: PERRL, EOMI - Neck Neck: Other (Mild diffuse tenderness of the cervical spine and maintained in a c-collar pending imaging.) - Cardiac Cardiac: RRR, No murmur - Respiratory Respiratory: No respiratory distress, Clear bilaterally - Abdomen Abdomen: Non tender - Extremities Extremities: No edema, No calf tenderness / cord - Neuro Neuro: Alert and oriented X 3, alignment specialist 2-12 intact, Normal speech Eye Opening: Spontaneous Motor: Obeys Commands Verbal: Oriented GCS Score: 15 - Psych Psych: Normal mood, Normal affect Results - Vitals Vitals: Vital Signs - 24 hr 12/09/23 16:31 Temperature 37.1 C Heart Rate 70 Respiratory 20 Rate Blood Pressure 107/72 O2 Saturation 100 Oxygen O2 Source Room air - Rads (name of study) c spine ct neg Relevant Findings:: Final report received, EMP independent interpretation of test PD Medical Decision Making - ED course ED course: 33-year-old woman with uncontrolled seizure disorder. Had a seizure today associate with a neck injury with negative imaging of the neck. Discussed case by phone with Dr. Biswas, neurologist associate with [facility] who will look through her chart and call me back. Subsequently neurologist called me back and recommended either increasing her zonisamide to 300 twice a day versus starting Depakote based on patient preference noting that patient would have to not get if taking Depakote. She opts for the former (an increase in her zonisamide). She will have her office arrange for trough levels of her antiepileptics to be drawn in the morning at some point, she does not feel like driving in the emergency department would be too useful for her. Departure - Departure Disposition: 01 Home, Self Care Clinical Impression: Seizure Condition: Good Record reviewed to determine appropriate education?: Yes Instructions: ED Seizure Recurrent Comments: You are seen today for breakthrough and uncontrolled seizures. I did discuss your case by phone with Dr. Jeannine Biswas, on-call neurology for the group that you use. She recommended either going up on your dizziness and mild to 300 (3 tablets) twice a day or starting Depakote. You have opted for the former so starting tomorrow morning you can take 300 mg of this is hide in the morning and the night. She also want you to have trough levels of your seizure medications and she will arrange that. So some morning before you have taken your morning meds you should come into the hospital to have your labs drawn. She will have her nurse reach out to you tomorrow. Return if worse.
[2023-12-09 16:40] VITALS: BP 107/72; O2SAT 100
--- NOTE | 2023-12-09 17:02 | CT Report ---
PROCEDURE: Cervical Spine WO INDICATIONS: neck inj TECHNIQUE: Noncontrast 3 mm thick sections acquired from the skull base to the T4 level. Sagittal and coronal r eformats were then constructed. For radiation dose reduction, the following was used: automated exp osure control, adjustment of mA and/or kV according to patient size. COMPARISON: None. FINDINGS: Image quality: Diagnostic Bones: There is straightening of normal cervical lordosis. There is no traumatic subluxation or acute vertebral body height loss. Soft tissues: No apical pneumothorax. No pathologic prevertebral soft tissue swelling. IMPRESSION: No acute fracture/subluxation of the cervical spine. If there is high concern for further derangement , consider MRI evaluation. Reviewed by: Paramjit Fontana MD on 12/09/2023 5:01 PM PDT Approved by: Paramjit Fontana MD on 12/09/2023 5:01 PM PDT Station ID: [id number]
== END 2023-12-09 17:32 | disposition home or self-care (01) ==
LOC: EDUNIT# → ED 16:25
DX: R56.9 Unspecified convulsions (principal)
CPT/HCPCS: 99284

== ENCOUNTER 2023-12-13 09:09 | Outpatient (CLI) | payer OTHER ==
[2023-12-16 13:10] LABS: LEVETIRACETAM (KEPPRA) 41.5 ug/mL (10.0-40.0)
[2023-12-16 15:09] LABS: ZONISAMIDE (ZONEGRAN) 40.9 ug/mL (10.0-40.0)
== END 2023-12-13 09:10 | disposition home or self-care (01) ==
LOC: LAB 09:09
PROVIDERS: ATTEND Psychiatry & Neurology Neurology
DX: Z51.81 Encounter for therapeutic drug level monitoring (principal); G40.B19 Juvenile myoclonic epilepsy, intractable, without status epilepticus
CPT/HCPCS: 36415; 80177